=== PATIENT | male | born 1930 | race Caucasian/White ===

== ENCOUNTER 2016-05-04 09:09 | Emergency (ER) | payer OTHER ==
[~2016-05-04] VITALS: Ht 168.9 cm; Wt 74.5 kg
[~2016-05-04 09:09] MED LIST: ASPIR 8181 M1; BENICAR20 MG; JANUMET 50/11 TABLET; LIPITOR20 MG; LOTREL 5/201 CAPSULE
[2016-05-04 09:52] LABS: HEMATOCRIT 39.1 % (38.0-50.0); MCH 29.4 PG (29.0-34.0); MCV 89.1 FL (86-99); MEAN PLAT.VOLUME 9.6 uM^3 (9.0-12.4); PLATELET COUNT 381 K/uL (156-360); RBC DIS.WIDTH-CV 13.4 % (11.8-14.6); RBC DIS.WIDTH-SD 42.7 % (39-53); RED BLOOD COUNT 4.39 M/uL (4.00-5.50)
[2016-05-04 10:04] LABS: CHLORIDE 102 mEq/L (99-109); POTASSIUM 4.7 mEq/L (3.7-5.4); SODIUM 141 mEq/L (136-147)
[2016-05-04 10:06] LABS: GLUCOSE 116 mg/dL (70-99)
[2016-05-04 10:07] LABS: ANION GAP 12 MEQ/L (2-14)
[2016-05-04 10:10] LABS: GFR ESTIMATE (CALCULATED) 51 mL/min/
[2016-05-04 10:11] LABS: UREA NITROGEN (BUN) 21 mg/dL (9-23)
[2016-05-04 10:16] LABS: TROP-I INTERPRETATION NEGATIVE; TROPONIN-I < 0.01 ng/mL (0.0-0.30)
[2016-05-04 10:52] LABS: INTER. NORMALIZED RATIO 1.1; PROTHROMBIN TIME 11.4 (9.2-11.2); PTT 26.5 (25-32)
[2016-05-04 11:03] LABS: ADD MIUA? YES; BILIRUBIN NEGATIVE; BLOOD NEGATIVE; COLOR STRAW ((YELLOW)); GLUCOSE (STRIP) NEGATIVE; KETONES NEGATIVE; LEUKOCYTES TRACE; NITRITE NEGATIVE; PROTEIN (STRIP) NEGATIVE; SPECIFIC GRAVITY 1.009 (1.000-1.030); UROBILINOGEN 0.2 MG/DL (0.2-1.0)
[2016-05-04 11:21] LABS: BACTERIA NONE SEEN /HPF; EPITHELIAL CELLS NONE SEEN /HPF; HYALINE CASTS 30-40 /LPF; MUCUS NONE SEEN /LPF; RED BLOOD CELLS 0-5 /HPF (0-5); UCUL ADDED? NO; WHITE BLOOD CELLS 0-5 /HPF (0-5)
[2016-05-04 12:01] VITALS: BP 132/71
== END 2016-05-04 12:08 | disposition home or self-care (01) ==
LOC: EME 09:09
PROVIDERS: Emergency Medicine
DX: R55 Syncope and collapse (principal); E86.0 Dehydration; E11.9 Type 2 diabetes mellitus without complications; E78.5 Hyperlipidemia, unspecified; I10 Essential (primary) hypertension; Z87.440 Personal history of urinary (tract) infections; Z79.84 Long term (current) use of oral hypoglycemic drugs; Z79.82 Long term (current) use of aspirin; Z87.891 Personal history of nicotine dependence
CPT/HCPCS: 71020; 80048; 81003; 83880; 84484; 85027; 85610; 85730; 87086; 93005; 99281; 99285; J7030

== ENCOUNTER 2016-10-08 12:22 | Emergency (ER) | payer OTHER ==
[~2016-10-08] VITALS: Ht 170.2 cm; Wt 74.0 kg
[2016-10-08 13:31] LABS: HEMATOCRIT 37.8 % (38.0-50.0); MCH 28.9 PG (29.0-34.0); MCHC 32.5 G/DL (30.0-36.0); MCV 88.7 FL (86-99); MEAN PLAT.VOLUME 10.6 uM^3 (9.0-12.4); PLATELET COUNT 224 K/uL (156-360); RBC DIS.WIDTH-CV 13.7 % (11.8-14.6); RBC DIS.WIDTH-SD 44.3 % (39-53); RED BLOOD COUNT 4.26 M/uL (4.00-5.50); WHITE BLOOD COUNT 10.9 K/uL (4.1-10.2)
[2016-10-08 13:43] LABS: CHLORIDE 106 mEq/L (99-109); POTASSIUM 4.3 mEq/L (3.7-5.4); SODIUM 142 mEq/L (136-147)
[2016-10-08 13:45] LABS: GLUCOSE 100 mg/dL (70-99); PTT 27.8 SEC (25-37)
[2016-10-08 13:46] LABS: ANION GAP 9 MEQ/L (2-14)
[2016-10-08 13:49] LABS: GFR ESTIMATE (CALCULATED) 51 mL/min/; UREA NITROGEN (BUN) 21 mg/dL (9-23)
[2016-10-08 13:53] LABS: TROP-I INTERPRETATION NEGATIVE; TROPONIN-I < 0.01 ng/mL (0.0-0.30)
[2016-10-08 15:01] VITALS: BP 167/72
== END 2016-10-08 15:02 | disposition home or self-care (01) ==
LOC: EME 12:22
PROVIDERS: Emergency Medicine
DX: T67.5XXA Heat exhaustion, unspecified, initial encounter (principal); E86.0 Dehydration; E78.5 Hyperlipidemia, unspecified; I10 Essential (primary) hypertension; E11.9 Type 2 diabetes mellitus without complications; Z79.84 Long term (current) use of oral hypoglycemic drugs
CPT/HCPCS: 71020; 80048; 84484; 85027; 85610; 85730; 93005; 99281; 99285; J7030